=== PATIENT | female | born 1950 | race Asian ===

== ENCOUNTER 2024-02-14 22:59 | Emergency (ER) | payer OTHER ==
[2024-02-14 23:11] VITALS: BP 152/85; PULSE 91; RESP 18; TEMP 97.9; BMI 29.4
[2024-02-14] MEDS ORDERED: SODIUM CHLORIDE 250 ML IV STA (23:13)
[2024-02-14] MEDS ORDERED: ONDANSETRON 4 MG/2 ML VIAL IVPB ONE (23:13)
[2024-02-14] MEDS ORDERED: ACETAMINOPHEN 1000 MG/100 ML BAG IVPB ONE (23:14)
[2024-02-14] MEDS ORDERED: ONDANSETRON 4 MG/2 ML VIAL ONE (23:18)
[2024-02-14] MEDS ORDERED: ACETAMINOPHEN INJECTION 100 ML IVPB ONE (23:18)
== END 2024-02-14 23:35 | disposition left against medical advice (07) ==
LOC: FER 22:59
DX: K52.9 Noninfective gastroenteritis and colitis, unspecified (principal); R11.2 Nausea with vomiting, unspecified
CPT/HCPCS: 99281-25